=== PATIENT | male | born 1975 | race Two or more races ===

== ENCOUNTER 2020-08-03 18:24 | Emergency (ER) | payer OTHER ==
[~2020-08-03] VITALS: Ht 170.2 cm; Wt 74.8 kg
[2020-08-03] MEDS ORDERED: IBUPROFEN 800 MG TAB PO ONE (19:30)
[2020-08-03 20:38] VITALS: BP 171/92
== END 2020-08-03 20:53 | disposition home or self-care (01) ==
LOC: ER 18:25
DX: S62.647A Nondisplaced fracture of proximal phalanx of left little finger, initial encounter for closed fracture (principal); E11.9 Type 2 diabetes mellitus without complications; I10 Essential (primary) hypertension; W01.0XXA Fall on same level from slipping, tripping and stumbling without subsequent striking against object, initial encounter; Y93.89 Activity, other specified; Y92.89 Other specified places as the place of occurrence of the external cause; Y99.8 Other external cause status
CPT/HCPCS: 29130; 73110; 73130